=== PATIENT | male | born 1980 | race Caucasian/White ===

== ENCOUNTER 2021-05-15 06:27 | Emergency (ER) | payer OTHER ==
--- NOTE | 2021-05-15 07:07 | EDM.PDOC ---
ED HPI GENERAL MEDICAL PROBLEM - General Chief Complaint: Syncope Stated Complaint: [facility] Time Seen by Provider: 05/15/21 07:07 Source of Information: Reports: Patient History Limitations: Reports: No Limitations - History of Present Illness INITIAL COMMENTS - FREE TEXT/NARRATIVE: 41-year-old male presents to the ED with COVID-19 symptoms of generalized myalgia mild headache loss of appetite mild diarrhea severe fatigue. His is positive since Saturday last week. He was tested and was tested negative. Symptoms worsened over the weekend. This morning while going to the bathroom he felt lightheaded and dizzy. He states that he felt like he might throw up in the next thing he knew he was on the floor of the bathroom. He believes he struck the back of his neck on the tub. Cannot remember if there was a loss of consciousness. Neck is still very sore. He has hardly eaten or drank much at all in the last 3 days. Been mostly bedridden. Last dose of Tylenol was before bed last night. He has never received a COVID-19 vaccine. Onset: Gradual Onset Date: 05/11/21 Duration: Day(s):, Getting Worse Location: Reports: Chest ( and weakness), Generalized (Generalized myalgia), Other ( nonproductive cough loss of appetite with nausea and vomiting) Quality: Reports: Ache, Other (Neurolyse myalgia) Severity: Moderate (pain mid cervical spine) Improves with: Reports: Rest Worsens with: Reports: Other, Movement (Dizzy and lightheaded with standing.) Context: Reports: Other. Denies: Activity, Exercise, Lifting, Sick Contact, Trauma Associated Symptoms: Reports: Cough, Loss of Appetite, Malaise, Weakness. Denies: Confusion (Syncope in the bathroom at home this morning), Chest Pain, cough w sputum, Fever/Chills, Headaches, Nausea/Vomiting, Rash, Seizure, Shortness of Breath Treatments AUTOMATION QA TESTER: Reports: Acetaminophen - Related Data Allergies Allergy/AdvReac Type Severity Reaction Status Date / Time No Known Allergies Allergy Verified 05/15/21 06:36 Home Meds: Home Meds Ascorbic Acid [Vitamin C] 1,000 mg PO DAILY 05/15/21 [History] Cholecalciferol (Vitamin D3) [D3-50] 50,000 unit PO DAILY 05/15/21 [History] Elderberry Fruit and Flower [Black Elderberry 575 mg Cap] 1 tab PO DAILY 0 05/15/21 [History] Ondansetron [Zofran] 4 mg BUCCAL Q6H PRN #12 tab 05/15/21 [Rx] Past Medical History HEENT History: Reports: None Cardiovascular History: Reports: None Respiratory History: Reports: None Gastrointestinal History: Reports: None Genitourinary History: Reports: None Musculoskeletal History: Reports: None Neurological History: Reports: None Endocrine/Metabolic History: Reports: None Dermatologic History: Reports: None - Past Surgical History Cardiovascular Surgical History: Reports: None Respiratory Surgical History: Reports: None Male Surgical History: Reports: Vasectomy Endocrine Surgical History: Reports: None Neurological Surgical History: Reports: C-Spine Musculoskeletal Surgical History: Reports: None Social & Family History - Living Situation & Occupation Living situation: Reports: Occupation: Employed ED ROS GENERAL - Review of Systems Review Of Systems: See Below Constitutional: Reports: Fever, Chills, Malaise, Weakness, Fatigue, Decreased Appetite HEENT: Reports: No Symptoms Respiratory: Reports: Shortness of Breath, Cough. Denies: Wheezing, Pleuritic Chest Pain, Sputum, Hemoptysis (Nonproductive) Cardiovascular: Reports: Lightheadedness. Denies: Chest Pain, Blood Pressure Problem, Claudication, Dyspnea on Exertion, Edema, Orthopnea, Palpitations Endocrine: Reports: Fatigue GI/Abdominal: Reports: Decreased Appetite. Denies: Diarrhea, Nausea, Vomiting : Reports: No Symptoms, Discharge, Dysuria, Flank Pain, Other (Urine is quite dark in color.). Denies: Frequency Musculoskeletal: Reports: Other (Generalized myalgia) Skin: Reports: No Symptoms ( especially neck and low back musculature) Neurological: Reports: Dizziness, Headache, Syncope, Difficulty Walking. Denies: Confusion, Numbness, Paresthesia, Pre-Existing Deficit, Seizure (Syncopal event at home this morning), Tingling, Tremors, Trouble Speaking (Due to weakness), Weakness Psychiatric: Reports: No Symptoms Hematologic/Lymphatic: Reports: No Symptoms Immunologic: Reports: No Symptoms - Physical Exam Exam: See Below Exam Limited By: No Limitations General Appearance: Alert, WD/WN, Mild Distress, Other (Appears that he is not feeling well. Temperature is 36.3 degrees. Heart rate is 74 and sinus respiratory to 16 with O2 sats of 92% on 2 L. BP is 09/17/1982.) Eye Exam: Bilateral Eye: Normal Inspection (No blepharal pallor or scleral icterus), PERRL Ears: Normal TMs Throat/Mouth: Normal Inspection, Normal Oropharynx, Other Head Exam: Atraumatic (Tongue is mildly dry and coated), Normocephalic, Other Neck: Normal Inspection (No outward signs of hematoma from fall this morning), Limited Range of Motion, Tender Lateral (Tender left lateral neck musculature. Mild tenderness midline C4-C6.). No: Supple Respiratory/Chest: No Respiratory Distress, Lungs Clear, Normal Breath Sounds, No Accessory Muscle Use Cardiovascular: Normal Peripheral Pulses, Regular Rate, Rhythm, No Edema, No Murmur, No Rub GI/Abdominal: Normal Bowel Sounds, Soft, Non-Tender, No Organomegaly, No Distention Neuro Exam (Abbreviated): Alert, Oriented, CN II-XII Intact, Normal Cognition, No Motor/Sensory Deficits. No: Normal Gait, Inattentive, Confused DTR: 2+: Bicep (R), Bicep (L), Patella (R), Patella (L) Back Exam: Normal Inspection, Full Range of Motion. No: CVA Tenderness (L), CVA Tenderness (R) Extremities: Normal Inspection, Normal Range of Motion, Non-Tender, No Pedal Edema Psychiatric: Normal Mood (Appears ill.), Other Skin Exam: Warm, Dry, Intact, Normal Color, No Rash #1 Interpretation EKG Date: 05/15/21 Time: 09:47 Rhythm: NSR Rate (Beats/Min): 65 [place]: Normal P-Wave: Enlarged (Consider mild left atrial hypertrophy P wave is inverted in lead V1 unclear reason.) QRS: Other (Incomplete right bundle branch block pattern) ST-T: Other (Diffuse early repolarization pattern) QT: Normal EKG Interpretation Comments: Abnormal ECG Course - Vital Signs Last Recorded V/S: Last Vital Signs Temp 36.3 C 05/15/21 06:48 Pulse 74 05/15/21 06:48 Resp 16 05/15/21 06:48 BP 116/83 05/15/21 06:48 Pulse Ox 92 L 05/15/21 06:48 Orthostatic Blood Pressure [ 103/70 Standing] Orthostatic Blood Pressure [ 106/65 Supine] - Orders/Labs/Meds Orders: Active Orders 24 hr Category Date Time Status Orthostatic Vital Signs [RC] ASDIRECTED Care 05/15/21 07:04 Active Vital Signs [RC] Q15M Care 05/15/21 08:53 Active Dextrose 5%-0.9% NaCl [Dextrose 5%-Normal Saline] 1,000 Med 05/15/21 07:45 Active ml IV ASDIRECTED EPINEPHrine [Adrenalin] Med 05/15/21 08:52 Active 0.3 mg IM ONETIME PRN Famotidine [Pepcid] Med 05/15/21 08:52 Active 20 mg IVPUSH ONETIME PRN Sodium Chloride 0.9% [Saline Flush] Med 05/15/21 09:00 Active 30 ml FLUSH ASDIRECTED diphenhydrAMINE [Benadryl] Med 05/15/21 08:52 Active 50 mg IVPUSH ONETIME PRN methylPREDNISolone Sod Succ [Solu-MEDROL] Med 05/15/21 08:52 Active 125 mg IVPUSH ONETIME PRN Medication Orders Diphenhydramine HCl (Diphenhydramine 50 Mg/Ml Sdv) 50 mg IVPUSH ONETIME PRN PRN Reason: hypersensitivity reaction Epinephrine HCl (Epinephrine 1 Mg/Ml Sdv) 0.3 mg IM ONETIME PRN PRN Reason: hypersensitivity reaction Famotidine (Famotidine 20 Mg/2 Ml Sdv) 20 mg IVPUSH ONETIME PRN PRN Reason: hypersensitivity reaction Dextrose/Sodium Chloride (Dextrose 5%-Normal Saline) 1,000 mls @ 500 mls/hr IV ASDIRECTED ON LICENSE OF [facility] Last Admin: 05/15/21 08:12 Dose: 500 mls/hr Documented by: KATARZYNA Methylprednisolone Sodium Succinate (Methylprednisolone Sodium Succinate 125 Mg/2 Ml Sdv) 125 mg IVPUSH ONETIME PRN PRN Reason: hypersensitivity reaction Sodium Chloride (Sodium Chloride 0.9% 10 Ml Syringe) 30 ml FLUSH ASDIRECTED ON LICENSE OF [facility] Labs: Laboratory Tests 05/15/21 05/15/21 05/15/21 Range/Units 06:40 06:40 06:40 WBC (4.23-9.07) K/mm3 RBC (4.63-6.08) M/mm3 Hgb (13.7-17.5) gm/dl Hct (40.1-51.0) % MCV (79.0-92.2) fl MCH (25.7-32.2) pg MCHC (32.2-35.5) g/dl RDW Std Deviation (35.1-43.9) fL Plt Count (163-337) K/mm3 MPV (9.4-12.3) fl Neut % (Auto) (34.0-67.9) % Lymph % (Auto) (21.8-53.1) % [place] % (Auto) (5.3-12.2) % Eos % (Auto) (0.8-7.0) Baso % (Auto) (0.1-1.2) % Neut # (Auto) (1.78-5.38) K/mm3 Lymph # (Auto) (1.32-3.57) K/mm3 [place] # (Auto) (0.30-0.82) K/mm3 Eos # (Auto) (0.04-0.54) K/mm3 Baso # (Auto) (0.01-0.08) K/mm3 PT (9.7-12.0) SECONDS INR APTT (21.7-31.4) SECONDS D-Dimer, Quantitative (0.19-0.50) mg/L Sodium (136-145) mEq/L Potassium (3.5-5.1) mEq/L Chloride (98-107) mEq/L Carbon Dioxide (21-32) mEq/L Anion Gap (5-15) BUN (7-18) mg/dL Creatinine (0.7-1.3) mg/dL Est Cr Clr Drug Dosing Estimated GFR (MDRD) (>60) mL/min BUN/Creatinine Ratio (14-18) Glucose (70-99) mg/dL Lactic Acid 1.5 (0.4-2.0) mmol/L Calcium (8.5-10.1) mg/dL Magnesium 1.9 (1.8-2.4) mg/dL Total Bilirubin (0.2-1.0) mg/dL AST (15-37) U/L ALT (16-63) U/L Alkaline Phosphatase (46-116) U/L Lactate Dehydrogenase 97 (85-227) U/L Troponin I < 0.017 (0.00-0.056) ng/mL C-Reactive Protein <0.2 (<1.0) mg/dL NT-Pro-B Natriuret Pep 24 (0-125) pg/mL Total Protein (6.4-8.2) g/dl Albumin (3.4-5.0) g/dl Globulin gm/dL Albumin/Globulin Ratio (1-2) SARS-CoV-2 RNA (SANDY) (NEGATIVE) 05/15/21 05/15/21 05/15/21 Range/Units 06:52 06:52 06:52 WBC 4.51 (4.23-9.07) K/mm3 RBC 5.18 (4.63-6.08) M/mm3 Hgb 15.6 (13.7-17.5) gm/dl Hct 46.7 (40.1-51.0) % MCV 90.2 (79.0-92.2) fl MCH 30.1 (25.7-32.2) pg MCHC 33.4 (32.2-35.5) g/dl RDW Std Deviation 43.4 (35.1-43.9) fL Plt Count 158 L (163-337) K/mm3 MPV 11.7 (9.4-12.3) fl Neut % (Auto) 61.7 (34.0-67.9) % Lymph % (Auto) 23.5 (21.8-53.1) % [place] % (Auto) 14.2 H (5.3-12.2) % Eos % (Auto) 0.2 L (0.8-7.0) Baso % (Auto) 0.2 (0.1-1.2) % Neut # (Auto) 2.78 (1.78-5.38) K/mm3 Lymph # (Auto) 1.06 L (1.32-3.57) K/mm3 [place] # (Auto) 0.64 (0.30-0.82) K/mm3 Eos # (Auto) 0.01 L (0.04-0.54) K/mm3 Baso # (Auto) 0.01 (0.01-0.08) K/mm3 PT (9.7-12.0) SECONDS INR APTT (21.7-31.4) SECONDS D-Dimer, Quantitative 0.29 (0.19-0.50) mg/L Sodium 143 (136-145) mEq/L Potassium 3.6 (3.5-5.1) mEq/L Chloride 106 (98-107) mEq/L Carbon Dioxide 26 (21-32) mEq/L Anion Gap 14.6 (5-15) BUN 11 (7-18) mg/dL Creatinine 1.3 (0.7-1.3) mg/dL Est Cr Clr Drug Dosing TNP Estimated GFR (MDRD) > 60 (>60) mL/min BUN/Creatinine Ratio 8.5 L (14-18) Glucose 121 H (70-99) mg/dL Lactic Acid (0.4-2.0) mmol/L Calcium 8.5 (8.5-10.1) mg/dL Magnesium (1.8-2.4) mg/dL Total Bilirubin 0.3 (0.2-1.0) mg/dL AST 22 (15-37) U/L ALT 32 (16-63) U/L Alkaline Phosphatase 68 (46-116) U/L Lactate Dehydrogenase (85-227) U/L Troponin I (0.00-0.056) ng/mL C-Reactive Protein (<1.0) mg/dL NT-Pro-B Natriuret Pep (0-125) pg/mL Total Protein 7.5 (6.4-8.2) g/dl Albumin 3.7 (3.4-5.0) g/dl Globulin 3.8 gm/dL Albumin/Globulin Ratio 1.0 (1-2) SARS-CoV-2 RNA (SANDY) (NEGATIVE) 05/15/21 05/15/21 Range/Units 06:52 07:00 WBC (4.23-9.07) K/mm3 RBC (4.63-6.08) M/mm3 Hgb (13.7-17.5) gm/dl Hct (40.1-51.0) % MCV (79.0-92.2) fl MCH (25.7-32.2) pg MCHC (32.2-35.5) g/dl RDW Std Deviation (35.1-43.9) fL Plt Count (163-337) K/mm3 MPV (9.4-12.3) fl Neut % (Auto) (34.0-67.9) % Lymph % (Auto) (21.8-53.1) % [place] % (Auto) (5.3-12.2) % Eos % (Auto) (0.8-7.0) Baso % (Auto) (0.1-1.2) % Neut # (Auto) (1.78-5.38) K/mm3 Lymph # (Auto) (1.32-3.57) K/mm3 [place] # (Auto) (0.30-0.82) K/mm3 Eos # (Auto) (0.04-0.54) K/mm3 Baso # (Auto) (0.01-0.08) K/mm3 PT 11.3 (9.7-12.0) SECONDS INR 1.02 APTT 27.2 (21.7-31.4) SECONDS D-Dimer, Quantitative (0.19-0.50) mg/L Sodium (136-145) mEq/L Potassium (3.5-5.1) mEq/L Chloride (98-107) mEq/L Carbon Dioxide (21-32) mEq/L Anion Gap (5-15) BUN (7-18) mg/dL Creatinine (0.7-1.3) mg/dL Est Cr Clr Drug Dosing Estimated GFR (MDRD) (>60) mL/min BUN/Creatinine Ratio (14-18) Glucose (70-99) mg/dL Lactic Acid (0.4-2.0) mmol/L Calcium (8.5-10.1) mg/dL Magnesium (1.8-2.4) mg/dL Total Bilirubin (0.2-1.0) mg/dL AST (15-37) U/L ALT (16-63) U/L Alkaline Phosphatase (46-116) U/L Lactate Dehydrogenase (85-227) U/L Troponin I (0.00-0.056) ng/mL C-Reactive Protein (<1.0) mg/dL NT-Pro-B Natriuret Pep (0-125) pg/mL Total Protein (6.4-8.2) g/dl Albumin (3.4-5.0) g/dl Globulin gm/dL Albumin/Globulin Ratio (1-2) SARS-CoV-2 RNA (SANDY) Positive H (NEGATIVE) Meds: Medications Generic Name Dose Route Start Last Admin Trade Name Sherifq PRN Reason Stop Dose Admin Diphenhydramine HCl 50 mg 05/15/21 08:52 Diphenhydramine 50 Mg/Ml Sdv IVPUSH ONETIME PRN hypersensitivity reaction Epinephrine HCl 0.3 mg 05/15/21 08:52 Epinephrine 1 Mg/Ml Sdv IM ONETIME PRN hypersensitivity reaction Famotidine 20 mg 05/15/21 08:52 Famotidine 20 Mg/2 Ml Sdv IVPUSH ONETIME PRN hypersensitivity reaction Dextrose/Sodium Chloride 1,000 mls @ 500 mls/hr 05/15/21 07:45 05/15/21 08:12 Dextrose 5%-Normal Saline IV 500 mls/hr ASDIRECTED EVERT Administration Methylprednisolone Sodium Succinate 125 mg 05/15/21 08:52 Methylprednisolone Sodium Succinate 125 Mg/2 Ml Sdv IVPUSH ONETIME PRN hypersensitivity reaction Sodium Chloride 30 ml 05/15/21 09:00 Sodium Chloride 0.9% 10 Ml Syringe FLUSH ASDIRECTED EVERT Discontinued Medications Generic Name Dose Route Start Last Admin Trade Name Ana PRN Reason Stop Dose Admin Acetaminophen 975 mg 05/15/21 10:37 05/15/21 10:54 Acetaminophen 325 Mg Tab PO 05/15/21 10:38 975 mg NOW ONE Administration CASIRIVIMAB/IMDEVIMAB 10 ml/ 110 mls @ 220 mls/hr 05/15/21 09:00 05/15/21 09:20 Sodium Chloride IV 05/15/21 09:29 220 mls/hr ONETIME ONE Administration - Radiology Interpretation Free Text/Narrative:: 41-year-old male presents to the ED with presumed COVID-19 illness. His is positive at home. He was tested on May 11 and was negative at that time. Over the weekend he has developed increased symptoms of COVID-19 illness particular shortness of breath generalized myalgia headache mild sore throat no diarrhea. Marked decreased appetite. He suffered a syncopal episode in the bathroom this morning he felt nauseated when he went into the bathroom and ended up falling to the floor striking his head on the bathtub as well as his neck. He does not believe he lost consciousness. O2 sats are 92% on 2 L here. Apparently when he came in his O2 sats were 88%. Plan he will require a complete work-up for COVID-19 illness. Orthostatic BPs are to be done. Initial IV is D5 normal saline at 500 mils an hour. - Re-Assessments/Exams Free Text/Narrative Re-Assessment/Exam: 05/15/21 08:24 White count is 4.51 with a differential of 61.7% neutrophils on the auto differential. Hemoglobin 15.6 with hematocrit of 46.7 platelet count 258,000. D-dimer is 0.29. Sodium 143 with potassium of 3.6. Chloride is 106 with a bicarb of 26. Anion gap is 14.6. BUN is 11 with a creatinine of 1.3 and a GFR greater than 60. Glucose is 121. Lactic acid is 1.5. Calcium is 8.5. Magnesium is 1.9. Liver function is normal. LDH is 97. Troponin I is less than 0.017 C-reactive protein less than 0.2 BNP is 24. Total protein 7.5 with an albumin fraction of 3.7 COVID-19 screen is positive. 0795 05/15/21 08:52 02 sats are between 94 and 96% off oxygen. He therefore is a candidate for Regen-Cov I have given him the fax sheet to read. He wishes to pursue this line of treatment. I have spoken to the patient Mr. Jose Rafael Mchugh and provided information aboutRegen-Cov for himself. I did give him a fax sheet for patients in patients and caregivers forregen-Cov to read and review. I stated that therapy has been approved by an emergency use authorization process and not been fully FDA reviewed or approved. I shared potential risks from the therapy including allergic reactions including anaphylaxis and potentially . I discussed there are other potential treatment options that are currently not FDA approved to treat COVID-19 offered opportunity to ask questions and all questions were answered. The patient Mr. Jose Rafael Mchugh voiced understanding and agreed to proceed with treatment for himself. 05/15/21 09:19 CT of the head has been completed. Ventricles along with basal cisterns and sulci over the convexities are within normal limits for the patient's age. No abnormal parenchymal densities are seen. No evidence of intracranial hemorrhage is seen. No midline shift or mass-effect is seen. Bone window settings were reviewed. Visualized mastoid sinuses are clear. Minimal mucosal thickening is seen within the anterior right ethmoid sinus which is felt to be incidental. No acute calvarial abnormalities appreciated. CT of the cervical spine has been completed. Vertebral body heights are maintained. Mild disc space narrowing is noted at the C5-6 level with posterior spurring. Mild right-sided neuroforaminal stenosis is noted at the C5-6 level. Other neuroforamina are patent. Minimal scattered degenerative changes seen within the apophyseal joints. Slight scattered spurring within the uncovertebral joints noted at the C3-4 level, C4-5 level and the C5-6 level. No acute fracture or subluxation is seen. 05/15/21 11:27 patient has completed his Regen-Cov--dual monoclonal antibody infusion and has been monitored for an hour with no adverse effects. He will tentatively be discharged to home with a pulse oximeter. Departure - Departure Time of Disposition: 11:28 Disposition: Home, Self-Care 01 Condition: Fair Clinical Impression: COVID-19 determined by clinical diagnostic criteria - Discharge Information *PRESCRIPTION DRUG MONITORING PROGRAM REVIEWED*: Not Applicable *COPY OF PRESCRIPTION DRUG MONITORING REPORT IN PATIENT CIARA: Not Applicable Prescriptions: Ondansetron [Zofran] 4 mg BUCCAL Q6H PRN #12 tab PRN Reason: nausea or vomiting Instructions: COVID-19 Frequently Asked Questions, Things to Know about the COVID-19 Pandemic - CDC (11/16/2020), COVID-19: Quarantine vs. Isolation - [facility] (08/18/2020) Referrals: PCP,None [Primary Care Provider] - Forms: ED Department Discharge, ED Return to Work/School Form Additional Instructions: Evaluation in the emergency room today confirms COVID-19 illness as you were suspected due to your being sick with this illness as well. Testing last proved to be negative and we find this often is the case if you are tested within 24 hours of onset of symptoms. History suggest symptoms started on April 08. This means you are contagious to others and should be quarantined until at least April 20. Today he received intravenous fluids to rehydrate you after vomiting and have suffering a syncopal event at home in the bathroom this morning. History suggest you have struck the back your head and neck on the bathtub. CT scan of both the head and neck proved to be negative for any broken bones. You may still have sore ligaments from falling and injuring yourself that may worsen over the next 24 to 48 hours. No other signs of injury were identified. You were given Reglan 10 mg in the emergency room to help alleviate nausea and vomiting. You may need to use Zofran 4 mg under the tongue every 4-6 hours necessary to relieve further nausea or vomiting if it occurs. Suggest first tablet would be due around noon today. He received dual monoclonal antibody therapy while in the emergency room with Regen-Cov. The idea behind this treatment is to give you immediate antibodies to the COVID-19 virus to help alleviate getting sicker with worsening viral pneumonia. Oxygen saturation stayed around 94 to 96% while in the emergency room. If your pulse oximeter is reading 88% for 2 consecutive hours it would be time to return to the emergency room for admission to the hospital if bed available. Continue using Motrin 600 mg every 6 hours as needed for body aches, headaches. Suggest Pepcid 20 mg tablet once daily which is an ebyl-hex-whapbuh medication to protect the stomach from the effects of Motrin over time. Sepsis Event Note (ED) - Focused Exam Vital Signs: Vital Signs Temp Pulse Resp BP Pulse Ox 05/15/21 06:48 36.3 C 74 16 116/83 92 L - My Orders Last 24 Hours: My Active Orders 05/15/21 07:04 Orthostatic Vital Signs [RC] ASDIRECTED 05/15/21 07:45 Dextrose 5%-0.9% NaCl [Dextrose 5%-Normal Saline] 1,000 ml IV ASDIRECTED 05/15/21 08:52 EPINEPHrine [Adrenalin] 0.3 mg IM ONETIME PRN Famotidine [Pepcid] 20 mg IVPUSH ONETIME PRN diphenhydrAMINE [Benadryl] 50 mg IVPUSH ONETIME PRN methylPREDNISolone Sod Succ [Solu-MEDROL] 125 mg IVPUSH ONETIME PRN 05/15/21 08:53 Vital Signs [RC] Q15M 05/15/21 09:00 Sodium Chloride 0.9% [Saline Flush] 30 ml FLUSH ASDIRECTED - Assessment/Plan Last 24 Hours: My Active Orders 05/15/21 07:04 Orthostatic Vital Signs [RC] ASDIRECTED 05/15/21 07:45 Dextrose 5%-0.9% NaCl [Dextrose 5%-Normal Saline] 1,000 ml IV ASDIRECTED 05/15/21 08:52 EPINEPHrine [Adrenalin] 0.3 mg IM ONETIME PRN Famotidine [Pepcid] 20 mg IVPUSH ONETIME PRN diphenhydrAMINE [Benadryl] 50 mg IVPUSH ONETIME PRN methylPREDNISolone Sod Succ [Solu-MEDROL] 125 mg IVPUSH ONETIME PRN 05/15/21 08:53 Vital Signs [RC] Q15M 05/15/21 09:00 Sodium Chloride 0.9% [Saline Flush] 30 ml FLUSH ASDIRECTED
[2021-05-15] MEDS ORDERED: Dextrose 5%-0.9% NaCl 1,000 ML IV SCH (07:45)
--- NOTE | 2021-05-15 08:02 | CR ---
Chest: Frontal view of the chest was obtained. Comparison: No prior chest imaging is available. Heart size and mediastinum are normal. Lungs are clear with no acute parenchymal change. Bony structures show nothing acute. Impression: 1. Nothing acute is appreciated on frontal chest x-ray. Diagnostic code #1
--- NOTE | 2021-05-15 08:30 | CT ---
CT cervical spine Technique: Multiple axial sections were obtained from above C1 inferiorly through T1. Reconstructed coronal and sagittal images were also obtained. Comparison: No prior cervical spine study is available. Findings: Vertebral body heights are maintained. Mild disc space narrowing is noted at C5-6 with posterior spurring. Mild right-sided neural foraminal stenosis is noted at C5-6. Other neural foramina are patent. Minimal scattered degenerative change is seen within the apophyseal joints. Slight scattered spurring within the uncovertebral joints noted at C3-4, C4-5 and C5-6. No acute fracture or subluxation is seen. Impression: 1. Mild degenerative change as described above. 2. Nothing acute is seen on CT study of the cervical spine. Diagnostic code #2
--- NOTE | 2021-05-15 08:31 | CT ---
Head CT Technique: Multiple axial sections through the brain were obtained. Intravenous contrast was not utilized. Reconstructed coronal and sagittal images were also obtained. Comparison: No prior intracranial imaging is available. Findings: Ventricles along with basal cisterns and sulci over the convexities are within normal limits for the patient's age. No abnormal parenchymal densities are seen. No evidence of intracranial hemorrhage is seen. No midline shift or mass-effect is seen. Bone window settings were reviewed. Visualized mastoid sinuses are clear. Minimal mucosal thickening is seen within the anterior right ethmoid sinus which is felt to be incidental. No acute calvarial abnormality is appreciated. Impression: 1. Nothing acute is appreciated on noncontrast head CT study. Diagnostic code #1
[2021-05-15] MEDS ORDERED: diphenhydrAMINE 50 MG/ML SDV IVPUSH PRN (08:52)
[2021-05-15] MEDS ORDERED: methylPREDNISolone Sodium Succinate 125 MG/2 ML SDV IVPUSH PRN (08:52)
[2021-05-15] MEDS ORDERED: Famotidine 20 MG/2 ML SDV IVPUSH PRN (08:52)
[2021-05-15] MEDS ORDERED: EPINEPHrine 1 MG/ML SDV IM PRN (08:52)
[2021-05-15] MEDS ORDERED: Sodium Chloride 0.9% 10 ML Syringe FLUSH SCH (09:00)
[2021-05-15] MEDS ORDERED: Acetaminophen 325 MG Tab PO ONE (10:37)
== END 2021-05-15 12:29 | disposition home or self-care (01) ==
LOC: JD.ED 06:27
DX: U07.1 COVID-19 (principal)
CPT/HCPCS: 36415; 70450; 71045; 72125; 80053; 83605; 83615; 83735; 83880; 84484; 85025; 85379; 85610; 85730; 86140; 87635; 93005; 99285; A9270; J7042; M0243; Q0243; 93010; 99284; U0002